=== PATIENT | female | born 1945 | race African-American/Black ===

== ENCOUNTER 2017-10-06 12:18 | Emergency (ER) | payer MEDICARE, MEDICAID ==
[~2017-10-06] VITALS: Ht 165.1 cm; Wt 105.0 kg
[~2017-10-06 12:18] MED LIST: ALBU18HF2 IH; SOMA
[2017-10-06 13:22] LABS: BASOPHILS % 1.4 % (0.0-2.0); EOSINOPHILS % 2.1 % (0.0-5.0); HEMATOCRIT. 44.5 % (36.0-48.0); HEMOGLOBIN. 14.5 g/dL (12.0-16.0); LYMPHOCYTES % 38.3 % (20.0-50.0); MEAN CORPUSCULAR HEMOGLOBIN 25.6 pg (28.0-32.0); MEAN CORPUSCULAR VOLUME 78.7 fL (81.0-99.0); MEAN PLATELET VOLUME 9.4 fl (7.4-10.4); MONOCYTES % 7.7 % (2.0-8.0); NEUTROPHILS % 50.5 % (40.0-76.0); PLATELET 212 x1000/uL (130-400); RED BLOOD CELL COUNT 5.65 mill/uL (4.2-5.4); RED CELL DISTRIBUTION WIDTH 15.2 % (11.6-14.6)
[2017-10-06 13:25] LABS: CHLORIDE 105 mEq/L (98-107)
[2017-10-06 13:26] LABS: INR 1.1; PROTHROMBIN TIME 10.9 sec (9.1-11.1)
[2017-10-06 15:15] LABS: CLARITY URINE CLEAR (CLEAR); COLOR URINE YELLOW (YELLOW); KETONES URINE NEGATIVE (NEGATIVE); LEUKOCYTE ESTERASE URINE TRACE (NEGATIVE); NITRITE URINE NEGATIVE (NEGATIVE); OCCULT BLOOD URINE NEGATIVE (NEGATIVE); PROTEIN URINE NEGATIVE (NEGATIVE); SPECIFIC GRAVITY URINE 1.008 (1.005-1.030); UROBILINOGEN URINE 0.2 E.U./dL (0.2-1.0)
[2017-10-06 16:00] VITALS: BP 150/100
== END 2017-10-06 16:20 | disposition home or self-care (01) ==
LOC: ER 12:49
DX: R10.13 Epigastric pain (principal)
CPT/HCPCS: 36415; 80053; 81003; 83690; 85025; 85610; 99284

== ENCOUNTER 2017-10-20 07:57 | Day surgery (SDC) | payer MEDICARE, MEDICAID ==
[~2017-10-20] VITALS: Ht 165.7 cm; Wt 108.0 kg
[2017-10-20] MEDS ORDERED: FURO40TA5 PO (09:25)
[2017-10-20] MEDS ORDERED: AMI2 PO (09:25)
[2017-10-20] MEDS ORDERED: LOSA50TA20 PO (09:25)
[2017-10-20] MEDS ORDERED: ASPI-1159 PO (09:25)
[2017-10-20] MEDS ORDERED: APIX5TAB PO (09:25)
[2017-10-20] MEDS ORDERED: DIGO125T82 PO (09:25)
[2017-10-20] MEDS ORDERED: LIDOCAINE HCL 2% JELLY 5ML ONE (10:47)
[2017-10-20] MEDS ORDERED: TETRACAINE/BENZOCAINE/BUTAMBEN 20 GM SPRAY MM ONE (10:47)
[2017-10-20] MEDS ORDERED: FENTANYL CITRATE/PF 50MCG/ML 2ML VIAL ONE (10:48)
[2017-10-20] MEDS ORDERED: MIDAZOLAM HCL 5 MG/5 ML VIAL ONE (10:48)
[2017-10-20] MEDS ORDERED: ONDANSETRON HCL 4MG/2ML INJ IV PRN (11:30)
[2017-10-20] MEDS ORDERED: ACETAMINOPHEN 325MG TABLET PO PRN (11:30)
== END 2017-10-20 13:50 | disposition home or self-care (01) ==
LOC: CARD 07:57
PROVIDERS: ATTEND Specialist
DX: I48.1 Persistent atrial fibrillation (principal); I10 Essential (primary) hypertension; J96.00 Acute respiratory failure, unspecified whether with hypoxia or hypercapnia; J44.9 Chronic obstructive pulmonary disease, unspecified; F17.210 Nicotine dependence, cigarettes, uncomplicated; Z79.899 Other long term (current) drug therapy; Z72.89 Other problems related to lifestyle; Z79.82 Long term (current) use of aspirin
CPT/HCPCS: 92960; 93005; 93312; 93325; J2250; J3010; 99152

== ENCOUNTER 2018-04-15 05:12 | Inpatient (IN) | payer MEDICARE, MEDICAID ==
[~2018-04-15] VITALS: Ht 165.1 cm; Wt 110.2 kg
[~2018-04-15 05:12] MED LIST changes: -ALBU18HF2 IH; +AMI2 PO; +APIX5TAB PO; +ASPI-1159 PO; +DIGO125T82 PO; +FURO40TA5 PO; +LOSA50TA20 PO; -SOMA
[2018-04-15] MEDS ORDERED: ONDANSETRON HCL 4MG/2ML INJ IV STA (06:32)
[2018-04-15] MEDS ORDERED: MORPHINE SULFATE 4 MG/ML CPJ (NOT FOR IM USE) IV STA (06:32)
[2018-04-15 07:02] LABS: BASOPHILS % 1.5 % (0.0-2.0); EOSINOPHILS % 0.4 % (0.0-5.0); HEMATOCRIT. 45.2 % (36.0-48.0); HEMOGLOBIN. 14.4 g/dL (12.0-16.0); LYMPHOCYTES % 26.5 % (20.0-50.0); MEAN CORPUSCULAR HEMOGLOBIN 26.1 pg (28.0-32.0); MEAN CORPUSCULAR VOLUME 81.9 fL (81.0-99.0); MEAN PLATELET VOLUME 9.9 fl (7.4-10.4); MONOCYTES % 5.7 % (2.0-8.0); NEUTROPHILS % 65.9 % (40.0-76.0); PLATELET 209 x1000/uL (130-400); RED BLOOD CELL COUNT 5.51 mill/uL (4.2-5.4)
[2018-04-15 07:04] LABS: CHLORIDE 106 mEq/L (98-107)
[2018-04-15 07:15] LABS: INR 1.1; PROTHROMBIN TIME 10.7 sec (9.1-11.1)
[2018-04-15 11:30] VITALS: BP 163/70
[2018-04-15] MEDS ORDERED: HYDRALAZINE 20MG/ML VIAL IV PRN (11:30)
[2018-04-15] MEDS ORDERED: LORAZEPAM 2MG/ML CPJ IV PRN (11:30)
[2018-04-15] MEDS ORDERED: IPRATROPIUM/ALBUTEROL 0.5-3(2.5)MG/3ML NEB INH PRN (11:30)
[2018-04-15] MEDS ORDERED: DEXTROSE 50% WATER 50ML SYRINGE IV PRN (11:30)
[2018-04-15] MEDS ORDERED: ONDANSETRON HCL 4MG/2ML INJ IV PRN (11:30)
[2018-04-15] MEDS ORDERED: DIPHENHYDRAMINE 50MG/ML VIAL IV PRN (11:30)
[2018-04-15] MEDS ORDERED: ACETAMINOPHEN 650MG SUPP PR PRN (11:30)
[2018-04-15 11:34] VITALS: BP 163/70
[2018-04-15] MEDS: BLOOD SUGAR DIAGNOSTIC STRIP TEST SCH ×3 (13:08→21:03)
[2018-04-15] MEDS: ENOXAPARIN 40MG/0.4ML SYR SUBCUT SCH (13:44)
[2018-04-15] MEDS: DEXT 5%/0.45% NACL 1000ML 1,000 ML IV SCH ×2 (13:44→21:42)
[2018-04-15] MEDS: PANTOPRAZOLE SODIUM 40 MG/VIAL IV SCH (13:44)
[2018-04-15] MEDS: INSULIN LISPRO 100 UNITS/ML SUBCUT SCH ×3 (13:45→21:07)
[2018-04-15 16:01] VITALS: BP 152/66
[2018-04-15] MEDS ORDERED: CLONIDINE HCL 0.3MG/24HR PATCH TD SCH (18:30)
[2018-04-15 20:12] VITALS: BP 144/68
[2018-04-15] MEDS: MORPHINE SULFATE 4 MG/ML CPJ (NOT FOR IM USE) IV PRN (21:39)
[2018-04-16] VITALS: BP 148/73
[2018-04-16 08:00] VITALS: BP 154/68
[2018-04-16] MEDS: BLOOD SUGAR DIAGNOSTIC STRIP TEST SCH ×4 (08:06→21:25)
[2018-04-16] MEDS: ENOXAPARIN 40MG/0.4ML SYR SUBCUT SCH (08:56)
[2018-04-16] MEDS: PANTOPRAZOLE SODIUM 40 MG/VIAL IV SCH (08:56)
[2018-04-16] MEDS: INSULIN LISPRO 100 UNITS/ML SUBCUT SCH ×4 (08:57→21:24)
[2018-04-16] MEDS: DEXT 5%/0.45% NACL 1000ML 1,000 ML IV SCH ×2 (08:58→18:56)
[2018-04-16 12:00] VITALS: BP 135/64
[2018-04-16] MEDS: MORPHINE SULFATE 4 MG/ML CPJ (NOT FOR IM USE) IV PRN (12:15)
[2018-04-16 16:00] VITALS: BP 145/62
[2018-04-16 20:00] VITALS: BP 122/63
[2018-04-16] MEDS: ENOXAPARIN 30MG/0.3ML SYR SUBCUT SCH (21:25)
[2018-04-17] VITALS (7 sets, daily range): BP systolic 128–160; BP diastolic 65–90
[2018-04-17] MEDS: MORPHINE SULFATE 4 MG/ML CPJ (NOT FOR IM USE) IV PRN ×2 (03:17→10:09)
[2018-04-17] MEDS: DEXT 5%/0.45% NACL 1000ML 1,000 ML IV SCH ×2 (05:26→17:18)
[2018-04-17] MEDS: BLOOD SUGAR DIAGNOSTIC STRIP TEST SCH ×4 (07:20→21:00)
[2018-04-17] MEDS: INSULIN LISPRO 100 UNITS/ML SUBCUT SCH ×4 (08:46→22:16)
[2018-04-17] MEDS: PANTOPRAZOLE SODIUM 40 MG/VIAL IV SCH (08:46)
[2018-04-17] MEDS: ENOXAPARIN 30MG/0.3ML SYR SUBCUT SCH ×2 (08:47→21:59)
[2018-04-17] MEDS ORDERED: THROAT LOZENGES-BENZOCAINE/MENTH/CETYLPYRD CL LOZENGES MM PRN (11:30)
[2018-04-18] VITALS (8 sets, daily range): BP systolic 123–166; BP diastolic 61–96
[2018-04-18] MEDS: DEXT 5%/0.45% NACL 1000ML 1,000 ML IV SCH (00:36)
[2018-04-18] MEDS: BLOOD SUGAR DIAGNOSTIC STRIP TEST SCH ×3 (07:56→17:33)
[2018-04-18] MEDS: INSULIN LISPRO 100 UNITS/ML SUBCUT SCH ×3 (07:57→17:36)
[2018-04-18] MEDS: ENOXAPARIN 30MG/0.3ML SYR SUBCUT SCH (07:58)
[2018-04-18] MEDS ORDERED: FAMOTIDINE 20MG/2ML VIAL IV SCH (09:00)
== END 2018-04-18 19:30 | disposition home health service (06) | DRG 247 ==
LOC: ER 05:12 → EDBEDREQSVC 07:41 → 6WST 07:49 → EDBEDREQ 08:06 → ENRESERV 09:50 → UNDOADMIN 11:24 → 6WST 11:24
PROVIDERS: ADMIT Internal Medicine; ATTEND Internal Medicine
DX: K56.609 Unspecified intestinal obstruction, unspecified as to partial versus complete obstruction (principal); N17.0 Acute kidney failure with tubular necrosis; E11.65 Type 2 diabetes mellitus with hyperglycemia; E66.01 Morbid (severe) obesity due to excess calories; E87.5 Hyperkalemia; Z79.4 Long term (current) use of insulin; K76.0 Fatty (change of) liver, not elsewhere classified; I10 Essential (primary) hypertension; Z68.41 Body mass index [BMI] 40.0-44.9, adult; Z88.0 Allergy status to penicillin; I50.9 Heart failure, unspecified; Z90.49 Acquired absence of other specified parts of digestive tract; Z90.710 Acquired absence of both cervix and uterus; Z79.82 Long term (current) use of aspirin
CPT/HCPCS: 36415; 71045; 74018; 74176; 80048; 82962; 83036; 93970; 96374; 96375; 97162; 97166; 99285; C1893; C9113; J0360; J1650; J1815; J2270; J2405; J3490